=== PATIENT | male | born 1960 | race Caucasian/White ===

== ENCOUNTER 2020-11-25 12:45 | Day surgery (SDC) | payer OTHER ==
[~2020-11-25 12:45] MED LIST: BUPIVACAINE HCL/PF 0.5% (5 MG/ML) 30 ML VIAL IJ ONE; MORPHINE SULFATE/PF 10 MG/ML ML IT ONE
[2020-11-25 13:04] VITALS: BMI 32.3
[2020-11-25] MEDS ORDERED: MORPHINE SULFATE 10 MG/1 ML *VIAL ONE (14:22)
[2020-11-25] MEDS ORDERED: MIDAZOLAM HCL 2 MG/2 ML SINGLE DOSE VIAL ONE (14:37)
[2020-11-25] MEDS ORDERED: KETOROLAC TROMETHAMINE 30 MG/1 ML VIAL ONE (14:39)
[2020-11-25] MEDS ORDERED: DEXAMETHASONE SOD PHOSPHATE 4 MG/1 ML VIAL ONE (14:39)
[2020-11-25] MEDS ORDERED: ceFAZolin SODIUM 1 GM VIAL ONE (14:39)
[2020-11-25] MEDS ORDERED: ONDANSETRON 4 MG/2 ML VIAL ONE (14:39)
[2020-11-25] MEDS ORDERED: BUPIVACAINE HCL/PF 0.5% (5 MG/ML) 30 ML VIAL IJ ONE ×2 (15:14→15:33)
[2020-11-25] MEDS ORDERED: MORPHINE SULFATE/PF 10 MG/ML ML IT ONE (15:33)
[2020-11-25] MEDS ORDERED: oxyCODONE HCL 5 MG TABLET PO PRN ×2 (15:50)
[2020-11-25] MEDS ORDERED: PROMETHAZINE HCL 25 MG/1 ML VIAL IVPUSH PRN (15:50)
[2020-11-25] MEDS ORDERED: ONDANSETRON 4 MG/2 ML VIAL IVPUSH PRN (15:50)
[2020-11-25 17:22] VITALS: TEMP 96.6
[2020-11-25 17:57] VITALS: BP 114/74; PULSE 72
== END 2020-11-25 17:50 | disposition home or self-care (01) ==
LOC: FASU 12:45
PROVIDERS: ATTEND Orthopaedic Surgery
PROC: 0SBC4ZZ Excision of Right Knee Joint, Percutaneous Endoscopic Approach (ICD-10-PCS; 2020-11-25)
PROC: 0SBC4ZZ Excision of Right Knee Joint, Percutaneous Endoscopic Approach (ICD-10-PCS; 2020-11-25)
PROC: 0SBC4ZZ Excision of Right Knee Joint, Percutaneous Endoscopic Approach (ICD-10-PCS; 2020-11-25)
PROC: 0SBC4ZZ Excision of Right Knee Joint, Percutaneous Endoscopic Approach (ICD-10-PCS; 2020-11-25)
PROC: 0SNC4ZZ Release Right Knee Joint, Percutaneous Endoscopic Approach (ICD-10-PCS; principal; 2020-11-25 15:14)
DX: M25.661 Stiffness of right knee, not elsewhere classified (principal); M67.261 Synovial hypertrophy, not elsewhere classified, right lower leg; M23.8X1 Other internal derangements of right knee; M67.51 Plica syndrome, right knee; M22.41 Chondromalacia patellae, right knee; S83.241A Other tear of medial meniscus, current injury, right knee, initial encounter; S83.281A Other tear of lateral meniscus, current injury, right knee, initial encounter; X58.XXXA Exposure to other specified factors, initial encounter; Y92.9 Unspecified place or not applicable; Y93.9 Activity, unspecified
CPT/HCPCS: 82962; 94760